=== PATIENT | female | born 1990 | race Caucasian/White ===

== ENCOUNTER 2021-06-18 19:31 | Emergency (ER) | payer OTHER ==
[2021-06-18 20:05] VITALS: BP 123/70; PULSE 70; TEMP 98.2; BMI 21.0
== END 2021-06-18 20:30 | disposition home or self-care (01) ==
LOC: JER 19:31
DX: U07.1 COVID-19 (principal)
CPT/HCPCS: 99283-25; C9803; U0003; U0005

== ENCOUNTER 2023-09-26 17:10 | Emergency (ER) | payer BC, OTHER ==
[2023-09-26 17:24] VITALS: BMI 27.8
[2023-09-26 20:29] VITALS: BP 131/88; PULSE 90; RESP 18; TEMP 98.4
== END 2023-09-26 20:23 | disposition home or self-care (01) ==
LOC: JER 17:10 → JERFT 17:10
DX: O26.893 Other specified pregnancy related conditions, third trimester (principal); R09.81 Nasal congestion; R05.9 Cough, unspecified; O99.513 Diseases of the respiratory system complicating pregnancy, third trimester; J02.9 Acute pharyngitis, unspecified; Z20.822 Contact with and (suspected) exposure to COVID-19; Z3A.36 36 weeks gestation of pregnancy
CPT/HCPCS: 0241U-QW; 99283-25